=== PATIENT | female | born 1950 | race Caucasian/White ===

== ENCOUNTER 2019-01-16 16:04 | Emergency (ER) | payer OTHER ==
[~2019-01-16] VITALS: Ht 154.9 cm; Wt 111.6 kg
[2019-01-16] MEDS ORDERED: GLUCOPHAGE XR750 MG PO (16:28)
[2019-01-16] MEDS ORDERED: ZOCOR20 MG PO (16:29)
[2019-01-16] MEDS ORDERED: AMITRIPTYLINE H75 MG PO (16:29)
[2019-01-16] MEDS ORDERED: ZOLOFT100 MG PO (16:30)
[2019-01-16] MEDS ORDERED: CARDIZEM120 MG PO (16:30)
[2019-01-16] MEDS ORDERED: NEURONTIN800 MG PO (16:30)
[2019-01-16] MEDS ORDERED: SEROQUEL50 MG PO (16:31)
[2019-01-16] MEDS ORDERED: CLONAZEPAM1 MG PO (16:31)
[2019-01-16] MEDS ORDERED: SYNTHROID75 MCG PO (16:32)
== END 2019-01-16 20:08 | disposition home or self-care (01) ==
LOC: ER 16:04
DX: M79.645 Pain in left finger(s) (principal)